=== PATIENT | female | born 1950 | race American Indian/Alaskan Native ===

== ENCOUNTER 2016-10-03 14:14 | Outpatient (CLI) | payer OTHER ==
[2016-10-03 15:01] LABS: BUN/Creatinine Ratio 22.72; Calcium 9.7 mg/dL (8.4-10.2); Chloride 100.8 mmol/L (98-107); Potassium 4.2 mmol/L (3.6-5.0)
== END 2016-10-03 14:15 | disposition home or self-care (01) ==
LOC: LAB 14:14
PROVIDERS: ATTEND Orthopaedic Surgery
DX: Z01.812 Encounter for preprocedural laboratory examination (principal)
CPT/HCPCS: 36415; 80048